=== PATIENT | male | born 1945 | race Caucasian/White ===

== ENCOUNTER → 2017-04-02 | Outpatient (REF) | payer MEDICARE, OTHER | LOC: M LAB REF 10:00 | PROVIDERS: ATTEND Surgery | DX: L72.3 Sebaceous cyst (principal) ==

== ENCOUNTER → 2020-08-15 | Outpatient (CLI) | payer MEDICARE, OTHER, BC ==
[~2020-08-15] MED LIST: ATOR1TAB19; TAMS1CAP17
--- NOTE | 2020-08-15 13:55 | REP ---
INDICATION: COUGH/MAIN REG WAITING ROOM. COMPARISON: No comparison chest x-ray. TECHNIQUE: Two views.. FINDINGS: The lungs are well inflated and free of infiltrate. The pleural angles are sharp. The heart size is normal. Pulmonary vasculature is not increased. No significant bony abnormality is seen. There are mild degenerative changes in the thoracic spine. IMPRESSION: Negative chest x-ray. <Electronically signed by Malik Funez > 08/15/20 [id number]
== END ==
LOC: M LAB 11:06
PROVIDERS: ATTEND Family Medicine
DX: R05 Cough (principal)

== ENCOUNTER → 2020-08-17 | Outpatient (CLI) | payer MEDICARE, OTHER | LOC: M LABSMTC 10:50 | PROVIDERS: ATTEND Surgery | DX: Z01.812 Encounter for preprocedural laboratory examination (principal); Z20.828 Contact with and (suspected) exposure to other viral communicable diseases | CPT/HCPCS: C9803; U0003 ==

== ENCOUNTER → 2020-08-22 | Day surgery (SDC) | payer MEDICARE, BC, OTHER ==
[~2020-08-22] VITALS: Ht 170.2 cm; Wt 77.1 kg
[~2020-08-22] MED LIST changes: +LIDOCAINE 2% 100MG/5ML SDV (FOR ANES.) As Ordered ONE; +NS 1,000 ML IV ONE; +propofoL 200 MG/20 ML VIAL As Ordered ONE
--- NOTE | 2020-08-22 07:48 | ROOR ---
Patient Name: Henrry Gibbons Procedure Date: 08/22/2020 7:31 AM Date of : 1945 Age: 75 Room: [facility] Gender: Male Note Status: Finalized Procedure: Colonoscopy Indications: Hematochezia Providers: DO Segun Castillo MD: Massimo Son MD Requesting Provider: Medicines: Propofol per Anesthesia Complications: No immediate complications. Procedure: Pre-Anesthesia Assessment: - Prior to the procedure, a History and Physical was performed, and patient medications and allergies were reviewed. The patient is competent. The risks and benefits of the procedure and the sedation options and risks were discussed with the patient. All questions were answered and informed consent was obtained. Patient identification and proposed procedure were verified by the physician, the nurse, the anesthesiologist and the converting technician in the endoscopy suite. Mental Status Examination: alert and oriented. Airway Examination: normal oropharyngeal airway and neck mobility. Respiratory Examination: clear to auscultation. CV Examination: normal. Prophylactic Antibiotics: The patient does not require prophylactic antibiotics. Prior Anticoagulants: The patient has taken no previous anticoagulant or antiplatelet agents. ASA Grade Assessment: III - A patient with severe systemic disease. After reviewing the risks and benefits, the patient was deemed in satisfactory condition to undergo the procedure. The anesthesia plan was to use monitored anesthesia care (MAC). Immediately prior to administration of medications, the patient was re-assessed for adequacy to receive sedatives. The heart rate, respiratory rate, oxygen saturations, blood pressure, adequacy of pulmonary ventilation, and response to care were monitored throughout the procedure. The physical status of the patient was re-assessed after the procedure. The Colonoscope was introduced through the anus and advanced to the cecum, identified by appendiceal orifice and ileocecal valve. The colonoscopy was performed without difficulty. The patient tolerated the procedure well. Findings: A few small-mouthed diverticula were found in the sigmoid colon. Non-bleeding internal hemorrhoids were found during retroflexion. The hemorrhoids were Grade II (internal hemorrhoids that prolapse but reduce spontaneously). The exam was otherwise without abnormality. Impression: - Diverticulosis in the sigmoid colon. - Non-bleeding internal hemorrhoids. - The examination was otherwise normal. - No specimens collected. Recommendation: - Patient has a contact number available for emergencies. The signs and symptoms of potential delayed complications were discussed with the patient. Return to normal activities tomorrow. Written discharge instructions were provided to the patient. - Repeat colonoscopy in 5-10 years for screening purposes. - Return to my office PRN. Alcon Naqvi DO 08/22/2020 7:48:07 AM Electronically signed by Alcon Naqvi DO Number of Addenda: 0 Note Initiated On: 08/22/2020 7:31 AM Estimated Blood Loss: Estimated blood loss: none.
[2020-08-22 08:15] VITALS: BP 157/79
== END | disposition home or self-care (01) ==
LOC: M OPP 06:42
PROVIDERS: ATTEND Surgery
DX: K57.30 Diverticulosis of large intestine without perforation or abscess without bleeding (principal); K64.1 Second degree hemorrhoids; K92.1 Melena; Z79.899 Other long term (current) drug therapy

== ENCOUNTER → 2021-04-24 | Outpatient (CLI) | payer MEDICARE, BC, OTHER ==
[~2021-04-24] MED LIST changes: -LIDOCAINE 2% 100MG/5ML SDV (FOR ANES.) As Ordered ONE; -NS 1,000 ML IV ONE; -propofoL 200 MG/20 ML VIAL As Ordered ONE
--- NOTE | 2021-04-26 10:51 | SLEEPCENT ---
DATE: 04/24/2021 NOCTURNAL POLYSOMNOGRAPHY ORDERED BY: CAIN Sullivan Diagnostic nocturnal polysomnography was performed for evaluation of sleep physiology in this patient with a history of snoring and nocturia. Seven hours and 30 minutes of data were reviewed. There were 243.5 minutes of sleep identified. Sleep latency was mildly prolonged at 54.5 minutes. REM sleep occurred on a normal schedule at 124 minutes. Sleep architecture showed some fragmentation. There was a period of wake around 3:00 a.m. resulting in a reduced sleep efficiency at 54.7%. The electrocardiogram showed a sinus-appearing rhythm with an average heart rate of 50 beats per minute. Rate ranged 45-80. EEG showed reasonably normal waveforms for wake and sleep. There were 114 respiratory events identified of 10 seconds in duration or greater for an apnea-hypopnea index of 28. The events were obstructive, not exclusive to sleep stage, more frequent but not exclusive to the supine posture. Arousals from respiratory events occurred 15 times per hour, and oxygen desaturations were seen below 90% with some minor activity in the limb leads and snoring noted. IMPRESSIONS: 1. Obstructive sleep apnea syndrome (G47.33). 2. Apnea-hypopnea index 28.1. RECOMMENDATION: The patient should be encouraged to return to [facility] for [facility]. In the interim, alcohol and sedative avoidance should be practiced and caution exercised during the operation of motor vehicles.
== END ==
LOC: M SLEEP 20:00
PROVIDERS: ATTEND Nurse Practitioner Family
DX: G47.33 Obstructive sleep apnea (adult) (pediatric) (principal); R06.83 Snoring

== ENCOUNTER → 2022-03-06 | Outpatient (CLI) | payer MEDICARE, BC, OTHER ==
[2022-03-06 13:12] LABS: BLOOD UREA NITROGEN 13 MG/DL (7-18); CALCIUM LEVEL 9.7 MG/DL (8.8-10.2); CARBON DIOXIDE LEVEL 27 MEQ/L (21-32); CHLORIDE LEVEL 105 MEQ/L (98-107); CREATININE FOR GFR 0.95 MG/DL (0.70-1.30); GLOMERULAR FILTRATION RATE > 60.0 (>42); GLUCOSE, FASTING 84 MG/DL (70-100); POTASSIUM SERUM 4.7 MEQ/L (3.5-5.1); SODIUM LEVEL 138 MEQ/L (136-145)
== END ==
LOC: M LAB 11:24
PROVIDERS: ATTEND Urology
DX: C63.2 Malignant neoplasm of scrotum (principal)
CPT/HCPCS: 36415; 80048; G0103

== ENCOUNTER → 2023-02-06 | Outpatient (CLI) | payer MEDICARE, BC, OTHER | LOC: M WUC 10:12 | PROVIDERS: ATTEND Family Medicine | DX: M25.512 Pain in left shoulder (principal) ==

== ENCOUNTER 2024-03-24 20:32 | Emergency (ER) | payer MEDICARE, BC, OTHER ==
[~2024-03-24] VITALS: Ht 170.2 cm; Wt 81.7 kg
[~2024-03-24 20:32] MED LIST changes: -ACET32TAB PO; -ATOR1TAB19; +ATOR1TAB19 PO; -CEPH500T; -TAMS1CAP17; +TAMS1CAP17 PO
[2024-03-24] MEDS ORDERED: ACET32TAB PO (20:42)
[2024-03-24] MEDS ORDERED: CEPH500T PO (20:42)
[2024-03-24 21:51] LABS: HEMATOCRIT 44.1 % (42.0-52.0); HEMOGLOBIN 15.3 g/dl (13.5-17.5); MEAN CORPUSCULAR HEMOGLOBIN 29.2 pg (27.0-33.0); MEAN CORPUSCULAR HGB CONC 34.7 g/dl (32.0-36.5); MEAN CORPUSCULAR VOLUME 84.2 fl (80.0-96.0); RED BLOOD COUNT 5.24 10^6/uL (4.30-6.10); WHITE BLOOD COUNT 6.9 10^3/uL (4.0-10.0)
[2024-03-24] MEDS: NS 500 ML IV ONE (21:57)
[2024-03-24] MEDS: IBUPROFEN 600MG TAB PO ONE (21:57)
[2024-03-24 22:04] LABS: PLATELET COUNT, AUTOMATED 75 10^3/uL (150-450)
[2024-03-24 22:09] LABS: LIPASE 24 U/L (12-53)
[2024-03-24 22:11] LABS: ALBUMIN 3.9 G/DL (3.2-5.2); ALKALINE PHOSPHATASE 58 U/L (46-116); ALT/SGPT 40 U/L (7.0-40); AST/SGOT 48 U/L (<34); BILIRUBIN,DIRECT 0.6 MG/DL (<0.4); BILIRUBIN,TOTAL 1.5 MG/DL (0.3-1.2); BLOOD UREA NITROGEN 23 MG/DL (9-23); CALCIUM LEVEL 8.4 MG/DL (8.3-10.6); CARBON DIOXIDE LEVEL 24 MMOL/L (20-31); CHLORIDE LEVEL 92 MMOL/L (98-107); CREATININE FOR GFR 1.04 MG/DL (0.70-1.30); GLOMERULAR FILTRATION RATE > 60.0 (>35); GLUCOSE, FASTING 108 MG/DL (74-106); POTASSIUM SERUM 4.2 MMOL/L (3.5-5.1); SODIUM LEVEL 123 MMOL/L (136-145); TOTAL PROTEIN 6.3 G/DL (5.7-8.2)
[2024-03-24 22:40] LABS: ATYPICAL LYMPH 1 % (0-5); LYMPHOCYTES 23 % (16-44); MONOCYTES 3 % (0-5); NEUTROPHILS 70 % (28-66)
[2024-03-24 22:42] LABS: HELMET CELLS 1+; PLATELET ESTIMATE DECREASED (NORMAL)
[2024-03-25] MEDS ORDERED: ISOVUE-370 76% 100ML VIAL As Ordered ONE (00:20)
[2024-03-25 02:15] VITALS: BP 124/71; TEMP 97.9; O2SAT 97
[2024-03-29 21:52] LABS: LYME TOTAL ANTIBODY CIA <= 0.90 Index (<=0.90)
== END 2024-03-25 02:41 | disposition home or self-care (01) ==
LOC: M ED 20:32
DX: R50.9 Fever, unspecified (principal); N28.1 Cyst of kidney, acquired; K76.89 Other specified diseases of liver; K42.9 Umbilical hernia without obstruction or gangrene; K76.0 Fatty (change of) liver, not elsewhere classified; K40.91 Unilateral inguinal hernia, without obstruction or gangrene, recurrent; E87.1 Hypo-osmolality and hyponatremia; E78.5 Hyperlipidemia, unspecified; K57.30 Diverticulosis of large intestine without perforation or abscess without bleeding; R53.83 Other fatigue; Z87.891 Personal history of nicotine dependence; Z79.02 Long term (current) use of antithrombotics/antiplatelets; Z79.1 Long term (current) use of non-steroidal anti-inflammatories (NSAID); Z79.899 Other long term (current) drug therapy

== ENCOUNTER → 2024-03-24 | Outpatient (CLI) | payer MEDICARE, BC, OTHER ==
[~2024-03-24] MED LIST changes: +ACET32TAB PO; +CEPH500T
[2024-03-24 16:42] LABS: ALBUMIN 3.9 G/DL (3.2-5.2); ALKALINE PHOSPHATASE 60 U/L (46-116); ALT/SGPT 30 U/L (7.0-40); AST/SGOT 32 U/L (<34); BILIRUBIN,TOTAL 1.3 MG/DL (0.3-1.2); BLOOD UREA NITROGEN 19 MG/DL (9-23); CARBON DIOXIDE LEVEL 25 MMOL/L (20-31); CHLORIDE LEVEL 96 MMOL/L (98-107); CREATININE FOR GFR 1.14 MG/DL (0.70-1.30); GLOMERULAR FILTRATION RATE > 60.0 (>35); GLUCOSE, FASTING 107 MG/DL (74-106); POTASSIUM SERUM 4.3 MMOL/L (3.5-5.1); SODIUM LEVEL 127 MMOL/L (136-145); TOTAL PROTEIN 6.3 G/DL (5.7-8.2)
[2024-03-24 17:00] LABS: HEMATOCRIT 44.7 % (42.0-52.0); HEMOGLOBIN 15.4 g/dl (13.5-17.5); MEAN CORPUSCULAR HEMOGLOBIN 29.8 pg (27.0-33.0); MEAN CORPUSCULAR HGB CONC 34.5 g/dl (32.0-36.5); MEAN CORPUSCULAR VOLUME 86.6 fl (80.0-96.0); PLATELET COUNT, AUTOMATED 104 10^3/uL (150-450); RED BLOOD COUNT 5.16 10^6/uL (4.30-6.10); WHITE BLOOD COUNT 6.9 10^3/uL (4.0-10.0)
[2024-03-24 18:01] LABS: ATYPICAL LYMPH 9 % (0-5); LYMPHOCYTES 32 % (16-44); MONOCYTES 2 % (0-5); NEUTROPHILS 54 % (28-66)
[2024-03-24 18:02] LABS: SMUDGE CELLS 2+
[2024-03-24 18:03] LABS: POIKILOCYTOSIS 1+
[2024-03-24 18:04] LABS: PLATELET ESTIMATE DECREASED (NORMAL)
== END ==
LOC: M WUC 10:46
PROVIDERS: ATTEND Nurse Practitioner Family
DX: R10.30 Lower abdominal pain, unspecified (principal); R50.9 Fever, unspecified; R53.83 Other fatigue

== ENCOUNTER 2024-03-28 14:09 | Inpatient (IN) | payer MEDICARE, BC ==
[~2024-03-28] VITALS: Ht 170.2 cm; Wt 83.3 kg
[~2024-03-28 14:09] MED LIST changes: +ACET32TAB PO; +CEPH500T PO
[2024-03-28 15:53] LABS: HEMATOCRIT 47.4 % (42.0-52.0); MEAN CORPUSCULAR HEMOGLOBIN 29.2 pg (27.0-33.0); MEAN CORPUSCULAR HGB CONC 35.9 g/dl (32.0-36.5); MEAN CORPUSCULAR VOLUME 81.3 fl (80.0-96.0); RED BLOOD COUNT 5.83 10^6/uL (4.30-6.10); WHITE BLOOD COUNT 4.9 10^3/uL (4.0-10.0)
[2024-03-28 15:54] LABS: C REACTIVE PROTEIN QUANTITATIV 20.4 MG/DL (<1.0)
[2024-03-28 15:56] LABS: PLATELET COUNT, AUTOMATED 35 10^3/uL (150-450)
[2024-03-28 16:02] LABS: APPEARANCE, URINE HAZY (CLEAR); BACTERIA, URINE AUTO NEGATIVE (NEGATIVE); BILIRUBIN, URINE AUTO NEGATIVE (NEGATIVE); BLOOD, URINE BLOOD 2+ (NEGATIVE); COLOR, URINE YELLOW (YELLOW); GLUCOSE, URINE (UA) AUTO NEGATIVE (NEGATIVE); KETONE, URINE AUTO NEGATIVE (NEGATIVE); LEUKOCYTE ESTERASE, URINE AUTO NEGATIVE (NEGATIVE); MUCUS, URINE SMALL (NEGATIVE); NITRITE, URINE AUTO NEGATIVE (NEGATIVE); PROTEIN, URINE AUTO 1+ mg/dL (NEGATIVE); RBC, URINE AUTO 5 /HPF (0-3); SPECIFIC GRAVITY URINE AUTO 1.014 (1.002-1.035); SQUAMOUS EPITHELIAL CELL UR AU 0 /HPF (0-6); UROBILINOGEN, URINE AUTO 0.2 mg/dL (0.0-2.0); WBC, URINE AUTO 12 /HPF (0-3)
[2024-03-28 16:07] LABS: PROCALCITONIN 4.05 ng/ml
[2024-03-28 16:11] LABS: ALBUMIN 3.4 G/DL (3.2-5.2); BILIRUBIN,DIRECT 0.3 MG/DL (<0.4); BILIRUBIN,TOTAL 0.8 MG/DL (0.3-1.2); CALCIUM LEVEL 8.5 MG/DL (8.3-10.6); CREATININE FOR GFR 2.25 MG/DL (0.70-1.30); GLOMERULAR FILTRATION RATE 29.9 (>35); POTASSIUM SERUM 4.5 MMOL/L (3.5-5.1); TOTAL PROTEIN 6.4 G/DL (5.7-8.2)
[2024-03-28] MEDS: NS 500 ML IV ONE (16:30)
[2024-03-28] MEDS: CEFEPIME HCL 2 GM in D5W MINI-BAG PLUS 50 ML IV ONE (16:30)
[2024-03-28] MEDS: NS 1,000 ML IV SCH (16:30)
[2024-03-28 16:40] LABS: ATYPICAL LYMPH 21 % (0-5); LYMPHOCYTES 8 % (16-44); MONOCYTES 4 % (0-5); NEUTROPHILS 62 % (28-66)
[2024-03-28 16:41] LABS: PLATELET ESTIMATE DECREASED (NORMAL)
[2024-03-28 16:43] LABS: BURR CELLS 1+
[2024-03-28] MEDS ORDERED: IBUP200T46 PO (16:59)
[2024-03-28] MEDS ORDERED: FLUO1CRE2 TOP (16:59)
[2024-03-28] MEDS ORDERED: ACET-897 PO (16:59)
[2024-03-28] MEDS ORDERED: HOME MED LIST COMPLETE! XX SCH (17:00)
[2024-03-28] MEDS ORDERED: MOM 30ML SUSPENSION UDC PO PRN (17:40)
[2024-03-28] MEDS ORDERED: ACETAMINOPHEN TAB 650MG DOSE (2X325MG) PO PRN (17:40)
[2024-03-28] MEDS ORDERED: MAALOX 30 ML SUSP *UDC PO PRN (17:40)
[2024-03-28 18:47] LABS: INR 1.02; PROTHROMBIN TIME 13.1 SECONDS (12.5-14.5)
[2024-03-28 18:48] LABS: MONO REFLEX EBV COMP NEGATIVE (NEGATIVE)
[2024-03-28 19:16] LABS: HIV 1&2 SCREEN NEGATIVE (NEGATIVE)
[2024-03-28 20:08] LABS: CALCIUM LEVEL 7.8 MG/DL (8.3-10.6); CREATININE FOR GFR 2.09 MG/DL (0.70-1.30); GLOMERULAR FILTRATION RATE 32.6 (>35); MAGNESIUM LEVEL 2.4 MG/DL (1.8-2.4); PHOSPHORUS LEVEL 3.9 MG/DL (2.4-5.1); POTASSIUM SERUM 3.9 MMOL/L (3.5-5.1)
[2024-03-28 22:52] VITALS: BP 140/84; TEMP 97.1; O2SAT 97
[2024-03-29 00:24] VITALS: BP 135/83; TEMP 97.4; O2SAT 97
[2024-03-29 04:15] VITALS: BP 132/85; TEMP 97.1; O2SAT 97
[2024-03-29 05:32] LABS: BASO % 0.4 % (0.0-1.0); HEMATOCRIT 40.6 % (42.0-52.0); HEMOGLOBIN 14.6 g/dl (13.5-17.5); LYMPH # 1.8 10^3/uL (1.5-5.0); LYMPH % 35.9 % (24.0-44.0); MEAN CORPUSCULAR VOLUME 80.7 fl (80.0-96.0); MONO # 0.4 10^3/uL (0.0-0.8); MONO % 7.8 % (2.0-8.0); NEUTROPHILS # 2.8 10^3/uL (1.5-8.5); NEUTROPHILS % 55.5 % (36.0-66.0); RED BLOOD COUNT 5.03 10^6/uL (4.30-6.10); WHITE BLOOD COUNT 5.1 10^3/uL (4.0-10.0)
[2024-03-29 05:35] LABS: PLATELET COUNT, AUTOMATED 37 10^3/uL (150-450)
[2024-03-29 06:02] LABS: CALCIUM LEVEL 7.7 MG/DL (8.3-10.6); CREATININE FOR GFR 1.9 MG/DL (0.70-1.30); GLOMERULAR FILTRATION RATE 36.4 (>35); MAGNESIUM LEVEL 2.3 MG/DL (1.8-2.4); POTASSIUM SERUM 3.7 MMOL/L (3.5-5.1)
[2024-03-29 06:05] LABS: FOLATE 12.2 NG/ML (>5.4)
[2024-03-29 07:29] VITALS: BP 138/76; TEMP 97.2; O2SAT 97
[2024-03-29 11:38] VITALS: BP 114/75; TEMP 96.9; O2SAT 96
[2024-03-29 16:11] VITALS: BP 112/70; TEMP 97.3; O2SAT 97
[2024-03-29 20:00] VITALS: BP 117/80; TEMP 96.8; O2SAT 96
[2024-03-29] MEDS: TAMSULOSIN 0.4 MG CAP PO SCH (20:34)
[2024-03-30] VITALS: BP 127/84; TEMP 96.4; O2SAT 96
[2024-03-30 04:00] VITALS: BP 116/75; TEMP 96.6; O2SAT 96
[2024-03-30 06:32] LABS: HEMATOCRIT 37.8 % (42.0-52.0); HEMOGLOBIN 13.7 g/dl (13.5-17.5); MEAN CORPUSCULAR HEMOGLOBIN 29.5 pg (27.0-33.0); MEAN CORPUSCULAR HGB CONC 36.2 g/dl (32.0-36.5); MEAN CORPUSCULAR VOLUME 81.5 fl (80.0-96.0); RED BLOOD COUNT 4.64 10^6/uL (4.30-6.10); WHITE BLOOD COUNT 6.8 10^3/uL (4.0-10.0)
[2024-03-30 06:35] LABS: PLATELET COUNT, AUTOMATED 73 10^3/uL (150-450)
[2024-03-30 06:48] LABS: BLOOD UREA NITROGEN 42 MG/DL (9-23); CALCIUM LEVEL 8.1 MG/DL (8.3-10.6); CARBON DIOXIDE LEVEL 24 MMOL/L (20-31); CHLORIDE LEVEL 104 MMOL/L (98-107); CREATININE FOR GFR 1.65 MG/DL (0.70-1.30); GLOMERULAR FILTRATION RATE 42.8 (>35); GLUCOSE, FASTING 107 MG/DL (74-106); MAGNESIUM LEVEL 2.4 MG/DL (1.8-2.4); POTASSIUM SERUM 3.9 MMOL/L (3.5-5.1); SODIUM LEVEL 134 MMOL/L (136-145)
[2024-03-30 07:57] LABS: HEPATITIS B SURFACE ANTIGEN NEGATIVE (NEGATIVE)
[2024-03-30 07:59] VITALS: BP 138/85; TEMP 96.7; O2SAT 97
[2024-03-30 08:18] LABS: HEPATITIS C VIRUS ABY INDEX < 0.02 INDEX (<0.8)
[2024-03-30 08:19] LABS: HEPATITIS B CORE ANTIBODY IGM NEGATIVE (NEGATIVE)
[2024-03-30 08:36] LABS: ATYPICAL LYMPH 3 % (0-5); LYMPHOCYTES 43 % (16-44); MONOCYTES 4 % (0-5); NEUTROPHILS 50 % (28-66); PLATELET ESTIMATE DECREASED (NORMAL)
[2024-03-30] MEDS: LACTOBACILLUS ACIDOPHILUS CAP (BACID) PO SCH (08:42)
[2024-03-30] MEDS: DOXYCYCLINE HYCLATE 100MG TABLET PO SCH (08:42)
[2024-03-30] MEDS: FERROUS SULFATE 325MG TAB PO SCH (08:42)
[2024-03-30] MEDS ORDERED: RISATAB3 PO (10:30)
[2024-03-30] MEDS ORDERED: DOXY100T PO (10:30)
[2024-03-30] MEDS ORDERED: FERR1TAB8 PO (10:30)
[2024-03-30 13:22] LABS: CREATININE FOR GFR 1.41 MG/DL (0.70-1.30); GLOMERULAR FILTRATION RATE 51.4 (>35); POTASSIUM SERUM 3.5 MMOL/L (3.5-5.1)
[2024-03-30 13:32] LABS: EBV VIRAL CAPSID AG IGM > 160.00 U/mL (<36.00)
[2024-03-30 18:07] LABS: ANA PATTERN Nuclear, Homogeneous (NEGATIVE); ANA SCREEN, IFA POSITIVE (NEGATIVE)
[2024-04-01 16:10] LABS: PARVOVIRUS B19 QUANT PCR Negative copies/mL (Negative)
== END 2024-03-30 14:30 | disposition home or self-care (01) | DRG 683 ==
LOC: M ED 14:09 → M ED INP 17:37 → M PCU 22:48
PROVIDERS: ADMIT Student in an Organized Health Care Education/Training Program; ATTEND Student in an Organized Health Care Education/Training Program
DX: N17.9 Acute kidney failure, unspecified (principal); E87.1 Hypo-osmolality and hyponatremia; B27.90 Infectious mononucleosis, unspecified without complication; Z96.641 Presence of right artificial hip joint; E86.0 Dehydration; K21.9 Gastro-esophageal reflux disease without esophagitis; M19.90 Unspecified osteoarthritis, unspecified site; D69.6 Thrombocytopenia, unspecified; I48.0 Paroxysmal atrial fibrillation; R50.9 Fever, unspecified; Z79.899 Other long term (current) drug therapy; Z98.49 Cataract extraction status, unspecified eye; Z11.52 Encounter for screening for COVID-19

== ENCOUNTER → 2024-04-01 | Outpatient (CLI) | payer MEDICARE, BC ==
[~2024-04-01] MED LIST changes: +ACET-897 PO; +DOXY100T PO; +FERR1TAB8 PO; +FLUO1CRE2 TOP; +IBUP200T46 PO; +RISATAB3 PO
[2024-04-01 11:30] LABS: HEMATOCRIT 38.1 % (42.0-52.0); HEMOGLOBIN 13.3 g/dl (13.5-17.5); MEAN CORPUSCULAR HEMOGLOBIN 29.3 pg (27.0-33.0); MEAN CORPUSCULAR HGB CONC 34.9 g/dl (32.0-36.5); MEAN CORPUSCULAR VOLUME 83.9 fl (80.0-96.0); PLATELET COUNT, AUTOMATED 207 10^3/uL (150-450); RED BLOOD COUNT 4.54 10^6/uL (4.30-6.10); WHITE BLOOD COUNT 6.7 10^3/uL (4.0-10.0)
[2024-04-01 12:02] LABS: BLOOD UREA NITROGEN 20 MG/DL (9-23); CALCIUM LEVEL 8.8 MG/DL (8.3-10.6); CARBON DIOXIDE LEVEL 25 MMOL/L (20-31); CHLORIDE LEVEL 105 MMOL/L (98-107); CREATININE FOR GFR 1.14 MG/DL (0.70-1.30); GLOMERULAR FILTRATION RATE > 60.0 (>35); GLUCOSE, FASTING 100 MG/DL (74-106); SODIUM LEVEL 135 MMOL/L (136-145)
[2024-04-01 12:06] LABS: ANISOCYTOSIS 1+; ATYPICAL LYMPH 27 % (0-5); BASOPHILS 1 % (0-1); EOSINOPHILS 2 % (0-3); LYMPHOCYTES 17 % (16-44); MONOCYTES 5 % (0-5); NEUTROPHILS 48 % (28-66)
[2024-04-01 12:08] LABS: PLATELET ESTIMATE NORMAL (NORMAL); SMUDGE CELLS 1+
== END ==
LOC: M WUC 10:22
PROVIDERS: ATTEND Student in an Organized Health Care Education/Training Program
DX: D69.6 Thrombocytopenia, unspecified (principal); N17.9 Acute kidney failure, unspecified

== ENCOUNTER → 2024-04-19 | Outpatient (CLI) | payer MEDICARE, BC ==
[2024-04-19 14:36] LABS: BASO % 0.3 % (0.0-1.0); EOS # 0.1 10^3/uL (0.0-0.5); EOS % 0.8 % (0.0-3.0); HEMATOCRIT 40.2 % (42.0-52.0); HEMOGLOBIN 13.4 g/dl (13.5-17.5); LYMPH # 3.6 10^3/uL (1.5-5.0); LYMPH % 54.9 % (24.0-44.0); MEAN CORPUSCULAR HEMOGLOBIN 28.6 pg (27.0-33.0); MEAN CORPUSCULAR HGB CONC 33.3 g/dl (32.0-36.5); MEAN CORPUSCULAR VOLUME 85.9 fl (80.0-96.0); MONO # 0.5 10^3/uL (0.0-0.8); MONO % 7.3 % (2.0-8.0); NEUTROPHILS # 2.4 10^3/uL (1.5-8.5); NEUTROPHILS % 36.5 % (36.0-66.0); PLATELET COUNT, AUTOMATED 155 10^3/uL (150-450); RED BLOOD COUNT 4.68 10^6/uL (4.30-6.10); WHITE BLOOD COUNT 6.6 10^3/uL (4.0-10.0)
[2024-04-19 15:04] LABS: ALBUMIN 4.1 G/DL (3.2-5.2); ALKALINE PHOSPHATASE 75 U/L (46-116); ALT/SGPT 25 U/L (7.0-40); AST/SGOT 12 U/L (<34); BLOOD UREA NITROGEN 18 MG/DL (9-23); CALCIUM LEVEL 9.6 MG/DL (8.3-10.6); CARBON DIOXIDE LEVEL 26 MMOL/L (20-31); CHLORIDE LEVEL 103 MMOL/L (98-107); CREATININE FOR GFR 1.07 MG/DL (0.70-1.30); GLOMERULAR FILTRATION RATE > 60.0 (>35); GLUCOSE, FASTING 87 MG/DL (74-106); POTASSIUM SERUM 4.8 MMOL/L (3.5-5.1); SODIUM LEVEL 135 MMOL/L (136-145); TOTAL PROTEIN 6.3 G/DL (5.7-8.2)
== END ==
LOC: M PLALAB 11:29
PROVIDERS: ATTEND Family Medicine
DX: A79.89 Other specified rickettsioses (principal)

== ENCOUNTER 2024-04-26 10:25 | Observation (INO) | payer MEDICARE, BC ==
[~2024-04-26] VITALS: Ht 172.7 cm; Wt 75.9 kg
[2024-04-26 11:52] LABS: BASO % 0.2 % (0.0-1.0); EOS # 0.1 10^3/uL (0.0-0.5); EOS % 0.6 % (0.0-3.0); HEMATOCRIT 43.3 % (42.0-52.0); HEMOGLOBIN 14.9 g/dl (13.5-17.5); LYMPH # 3.6 10^3/uL (1.5-5.0); LYMPH % 43.9 % (24.0-44.0); MEAN CORPUSCULAR HEMOGLOBIN 29.1 pg (27.0-33.0); MEAN CORPUSCULAR HGB CONC 34.4 g/dl (32.0-36.5); MEAN CORPUSCULAR VOLUME 84.6 fl (80.0-96.0); MONO # 0.6 10^3/uL (0.0-0.8); MONO % 6.6 % (2.0-8.0); NEUTROPHILS % 48.5 % (36.0-66.0); PLATELET COUNT, AUTOMATED 159 10^3/uL (150-450); RED BLOOD COUNT 5.12 10^6/uL (4.30-6.10); WHITE BLOOD COUNT 8.3 10^3/uL (4.0-10.0)
[2024-04-26 11:59] LABS: ALBUMIN 4.3 G/DL (3.2-5.2); ALKALINE PHOSPHATASE 84 U/L (46-116); ALT/SGPT 36 U/L (7.0-40); AST/SGOT 23 U/L (<34); BILIRUBIN,DIRECT 0.2 MG/DL (<0.4); BILIRUBIN,TOTAL 0.9 MG/DL (0.3-1.2); BLOOD UREA NITROGEN 13 MG/DL (9-23); CALCIUM LEVEL 9.8 MG/DL (8.3-10.6); CARBON DIOXIDE LEVEL 25 MMOL/L (20-31); CHLORIDE LEVEL 104 MMOL/L (98-107); CK-MB VALUE MASS < 1.0 NG/ML (<3.6); CREATININE FOR GFR 0.99 MG/DL (0.70-1.30); GLOMERULAR FILTRATION RATE > 60.0 (>35); GLUCOSE, FASTING 104 MG/DL (74-106); SODIUM LEVEL 135 MMOL/L (136-145); TOTAL PROTEIN 6.8 G/DL (5.7-8.2)
[2024-04-26 12:00] LABS: THYROXINE (T4) 7.7 UG/DL (4.5-10.9)
[2024-04-26 12:01] LABS: CPK CREATINE PHOSPHOKINASE 75 U/L (46-171); MB/CK RELATIVE INDEX 1.33 (< OR =4)
[2024-04-26 12:04] LABS: INR 1.04; PROTHROMBIN TIME 13.3 SECONDS (12.5-14.5)
[2024-04-26] MEDS: NS 500 ML IV ONE (12:46)
[2024-04-26 12:47] LABS: MAGNESIUM LEVEL 2.1 MG/DL (1.8-2.4); PHOSPHORUS LEVEL 3.6 MG/DL (2.4-5.1)
[2024-04-26 13:31] LABS: CK-MB VALUE MASS < 1.0 NG/ML (<3.6)
[2024-04-26 13:32] LABS: CPK CREATINE PHOSPHOKINASE 65 U/L (46-171); MB/CK RELATIVE INDEX 1.53 (< OR =4)
[2024-04-26] MEDS: METOPROLOL TART 25 MG TABLET PO ONE (14:31)
[2024-04-26] MEDS: NS 1,000 ML IV SCH (14:31)
[2024-04-26] MEDS ORDERED: ACETAMINOPHEN TAB 650MG DOSE (2X325MG) PO PRN (14:35)
[2024-04-26] MEDS ORDERED: MOM 30ML SUSPENSION UDC PO PRN (14:35)
[2024-04-26] MEDS ORDERED: MAALOX 30 ML SUSP *UDC PO PRN (14:35)
[2024-04-26] MEDS ORDERED: ELIQ5TAB PO (15:28)
[2024-04-26] MEDS ORDERED: HOME MED LIST COMPLETE! XX SCH (15:45)
[2024-04-26 21:06] VITALS: BP 145/80; O2SAT 99
[2024-04-26] MEDS: APIXABAN 5 MG TAB (ELIQUIS) PO SCH (21:28)
[2024-04-26] MEDS: METOPROLOL TART 25 MG TABLET PO SCH (21:28)
[2024-04-27] VITALS: BP 135/74; TEMP 97.5; O2SAT 96
[2024-04-27 03:55] VITALS: BP 138/72; TEMP 97.8; O2SAT 97
[2024-04-27 06:55] LABS: BLOOD UREA NITROGEN 11 MG/DL (9-23); CALCIUM LEVEL 8.9 MG/DL (8.3-10.6); CARBON DIOXIDE LEVEL 26 MMOL/L (20-31); CHLORIDE LEVEL 108 MMOL/L (98-107); CREATININE FOR GFR 0.99 MG/DL (0.70-1.30); GLOMERULAR FILTRATION RATE > 60.0 (>35); GLUCOSE, FASTING 87 MG/DL (74-106); MAGNESIUM LEVEL 1.9 MG/DL (1.8-2.4); POTASSIUM SERUM 4.6 MMOL/L (3.5-5.1); SODIUM LEVEL 138 MMOL/L (136-145)
[2024-04-27 07:42] VITALS: BP 126/82; TEMP 97; O2SAT 97
[2024-04-27 08:52] VITALS: BP 130/92
[2024-04-27 08:57] VITALS: BP 130/92
[2024-04-27] MEDS: METOPROLOL TART 12.5 MG PER 1/2 TAB PO SCH (08:57)
[2024-04-27] MEDS ORDERED: METOPROLOL TART 25 MG TABLET PO SCH (09:00)
[2024-04-27] MEDS ORDERED: METO1TAB87 PO (11:31)
[2024-04-27 12:00] VITALS: BP 130/92; TEMP 96.8; O2SAT 99
== END 2024-04-27 13:20 | disposition home or self-care (01) ==
LOC: M ED 10:25 → M ED INP 14:35 → INTOOBSV 14:35 → M PCU 21:16
PROVIDERS: ADMIT Student in an Organized Health Care Education/Training Program; ATTEND Student in an Organized Health Care Education/Training Program
DX: I48.0 Paroxysmal atrial fibrillation (principal); I95.1 Orthostatic hypotension; R42 Dizziness and giddiness; I08.0 Rheumatic disorders of both mitral and aortic valves; I31.39 Other pericardial effusion (noninflammatory); I45.10 Unspecified right bundle-branch block; E87.1 Hypo-osmolality and hyponatremia; K21.9 Gastro-esophageal reflux disease without esophagitis; M19.90 Unspecified osteoarthritis, unspecified site; H25.9 Unspecified age-related cataract; B27.90 Infectious mononucleosis, unspecified without complication; A79.82 Anaplasmosis [A. phagocytophilum]; R00.2 Palpitations; R00.0 Tachycardia, unspecified; Z85.47 Personal history of malignant neoplasm of testis; Z96.642 Presence of left artificial hip joint; Z79.899 Other long term (current) drug therapy; Z79.01 Long term (current) use of anticoagulants
CPT/HCPCS: 36415; 71046; 80048; 80076; 82550; 82553; 83735; 84100; 84436; 84443; 84484; 85025; 85610; 93005; 93041; 93306; 94760; 96360; 96361; 97161; 97165; 99285; G0378

== ENCOUNTER → 2024-07-12 | Outpatient (CLI) | payer MEDICARE, BC ==
[~2024-07-12] MED LIST changes: +ELIQ5TAB PO; +METO1TAB87 PO
[2024-07-12 12:13] LABS: BASO % 0.4 % (0.0-1.0); EOS # 0.1 10^3/uL (0.0-0.5); EOS % 1.3 % (0.0-3.0); HEMATOCRIT 39.8 % (42.0-52.0); HEMOGLOBIN 13.6 g/dl (13.5-17.5); LYMPH # 4.7 10^3/uL (1.5-5.0); MEAN CORPUSCULAR HEMOGLOBIN 29.4 pg (27.0-33.0); MEAN CORPUSCULAR HGB CONC 34.2 g/dl (32.0-36.5); MONO # 0.5 10^3/uL (0.0-0.8); MONO % 5.8 % (2.0-8.0); NEUTROPHILS % 36.4 % (36.0-66.0); PLATELET COUNT, AUTOMATED 209 10^3/uL (150-450); RED BLOOD COUNT 4.63 10^6/uL (4.30-6.10); WHITE BLOOD COUNT 8.3 10^3/uL (4.0-10.0)
[2024-07-12 12:29] LABS: ALBUMIN 4.2 G/DL (3.2-5.2); ALKALINE PHOSPHATASE 77 U/L (46-116); ALT/SGPT 21 U/L (7.0-40); AST/SGOT 13 U/L (<34); BILIRUBIN,TOTAL 1.2 MG/DL (0.3-1.2); BLOOD UREA NITROGEN 13 MG/DL (9-23); CALCIUM LEVEL 9.9 MG/DL (8.3-10.6); CARBON DIOXIDE LEVEL 26 MMOL/L (20-31); CHLORIDE LEVEL 101 MMOL/L (98-107); CHOLESTEROL LEVEL 153 MG/DL (<200); CHOLESTEROL RISK RATIO 3.36 (<5); CREATININE FOR GFR 1.05 MG/DL (0.70-1.30); GLOMERULAR FILTRATION RATE > 60.0 (>35); GLUCOSE, FASTING 92 MG/DL (74-106); HDL CHOLESTEROL 45.5 MG/DL (>40); LDL CHOLESTEROL 91.7 MG/DL (<100); NON-HDL-C 107.5 MG/DL; POTASSIUM SERUM 4.3 MMOL/L (3.5-5.1); SODIUM LEVEL 132 MMOL/L (136-145); TOTAL PROTEIN 6.7 G/DL (5.7-8.2); TRIGLYCERIDES LEVEL 79 MG/DL (<150)
== END ==
LOC: M WUC 09:53
PROVIDERS: ATTEND Family Medicine
DX: Z00.00 Encounter for general adult medical examination without abnormal findings (principal); E78.00 Pure hypercholesterolemia, unspecified